=== PATIENT | male | born 1955 | race Caucasian/White ===

== ENCOUNTER 2019-09-25 16:20 | Emergency (ER) | payer SELFPAY ==
[2019-09-25] MEDS ORDERED: Adacel (T-DAP) 0.5 ML SYRINGE ONE (16:54)
[2019-09-25] MEDS ORDERED: Acetaminophen 325 MG Suppository ONE (17:09)
[2019-09-25] MEDS ORDERED: Acetaminophen 325 MG TAB ONE (17:09)
--- NOTE | 2019-09-25 17:30 | CT ---
Exam: Head CT without contrast HISTORY: Trauma. Pain. Patient fell from a height of 4 feet. Patient takes Plavix COMPARISON: none FINDINGS: Hemorrhage: No intraparenchymal hemorrhage or extra-axial hematoma. Brain parenchyma: Cortical rhoades-white matter differentiation is preserved. No mass effect or midline shift. Basilar cisterns are patent. Ventricular system: Ventricles and sulci are patent and symmetric. Calvarium: Intact. Scalp: Small left temporal scalp hematoma. Sinuses and mastoid air cells: Adequate aeration. IMPRESSION: No intracranial posttraumatic sequelae.
--- NOTE | 2019-09-25 17:48 | CT ---
Exam: CT cervical spine without contrast HISTORY: Trauma. Pain. Patient is on Plavix. Patient fell from height of 4 feet. COMPARISON: None FINDINGS: No craniocervical dissociation. Appropriate alignment of the lateral masses of C1 and C2. Intact odon toid process Appropriate alignment of the facets. Straightening of normal cervical lordosis may be due to patient position, muscle spasm or cervical co llar Soft tissue neck structures: No mass, lymphadenopathy or hematoma. No prevertebral soft tissue swelli ng. Upper mediastinum and lung apices: Unremarkable Central spinal canal: There are varying degrees of central canal stenosis and neural foraminal narrow ing on the basis of degenerative change. Significant foraminal narrowing at C3-C4, C4-C5, C5-C6, C6-C7 is noted. Technique limits evaluation. Vertebral bodies: Cervical spine vertebral body height is maintained. No fracture. There is a lytic f ocus with soft tissue attenuation in the C2 vertebral body measuring 0.7 x 0.7 cm IMPRESSION: 1. Varying degrees of significant neural foraminal narrowing on the basis of degenerative change. Paula hnique limits evaluation 2. Lytic focus with soft tissue attenuation the dens, nonspecific. Nonemergent pre and postcontrast c ervical spine MRI is recommended. 3. No evidence of fracture. Transcribed Date/Time: 09/25/2019 6:14 PM
== END 2019-09-25 16:43 | disposition home or self-care (01) ==
LOC: ERS 16:20
DX: S01.01XA Laceration without foreign body of scalp, initial encounter (principal); G95.9 Disease of spinal cord, unspecified; I25.2 Old myocardial infarction; F17.210 Nicotine dependence, cigarettes, uncomplicated; W17.89XA Other fall from one level to another, initial encounter
CPT/HCPCS: 70450; 72125; 90471; 90715